=== PATIENT | female | born 1995 | race Caucasian/White ===

== ENCOUNTER 2018-05-09 15:25 | Emergency (ER) | payer BC ==
[~2018-05-09] VITALS: Ht 167.6 cm; Wt 92.1 kg
--- NOTE | 2018-05-09 15:53 | ED Psychosocial ---
General Chief Complaint: Psych/Social Disorder Stated Complaint: ANXIETY Nursing Triage Note: PT REPORTS PANIC ATTACK DUE TO STRESS RELATED TO STARTING COLLEGE. PT STATES SHE HAS FREQUENT ATTACKS SINCE PHYSICIAN STOPPED HER XANAX. PT IS MINIMALLY ANXIOUS ATT. (YAMILET HERNANDEZ) History of Present Illness Date Seen by Provider: May 09, 2018 Time Seen by Provider: 15:45 Initial Comments 22 year old female presents via EMS for anxiety attack. She has been diagnosed and treated for both depression and anxiety since December 2017. She was started on Zoloft in December and has been taking it continuously since then, though she initially had trouble remembering to take it. She used Xanax for a short time in January but has not had any further Xanax. She is treated at [facility]. She did recently have a breakup with her boyfriend over the last 2 or 3 weeks and reports that her symptoms have been worse. She has had no follow-up at [facility] and is no longer seeking counseling. She denies any suicidal or homicidal thoughts. She reports some mild issues with depression and anxiety since childhood but was never treated, her parents thought it "was a phase." She has been to multiple counselors over the last 5 years. Per her note at [facility] there was concern of generalized anxiety disorder versus bipolar 2 disorder. She was being seen every 2-4 weeks from Dec-Feb at [facility]. She was to follow up in Mar and did not keep that appt. She denies a trigger today, states she got home from class and was putting her things away. She began to feel pain in all her extermeties and extreme anxiety, she was shaking but called her sister who remained on the phone with her. EMS was notified. She never lost consciousness or had incontinence, though there was concern if she had a seizure by her sister. She reports no appetite and didn 't eat much today. Her glucose was 91 per EMS. She denies any auditory or visual hallucinations. Though she does report possible auditory hallucinations in her past. She thinks her anxiety has gotten worse since returning to classes this semester. She went through a break up with her boyfriend in the last 3 weeks and that has upset her. She doesn't like to talk to her family or friends about her stressors. 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 Timing/Duration: just prior to arrival Severity: mild Associated Symptoms: anxiety (YAMILET HERNANDEZ) Allergies and Home Medications Allergies Coded Allergies: No Known Drug Allergies (Unverified Allergy, Unknown, 04/25/09) Home Medications Alprazolam 0.25 Mg Tablet, 0.25 MG PO Q8H PRN for ANXIETY Take 1/2 to 1 tablet, as needed every 8 hours. Prescribed by: YAMILET HERNANDEZ on 05/09/18 5790 Patient Home Medication List Home Medication List Reviewed: Yes (YAMILET HERNANDEZ) Review of Systems Constitutional: no symptoms reported, see HPI : No LMP: May 07, 2018 Control/STD Prophylaxis: None (abstinence) Musculoskeletal: no symptoms reported, see HPI (YAMILET HERNANDEZ) All Other Systems Reviewed Negative Unless Noted: Yes (YAMILET HERNANDEZ) Past Qwkxxtb-Bfcfoh-Auzbgh Hx Past Med/Social Hx: Reviewed Nursing Past Med/Soc Hx (YAMILET HERNANDEZ) Patient Social History Alcohol Use: Denies Use Recreational Drug Use: No Smoking Status: Never a Smoker Recent Foreign Travel: No Contact w/Someone Who Travel: No Recent Infectious Disease Expo: No Recent Hopitalizations: No Physical Abuse: No Sexual Abuse: No (YAMILET HERNANDEZ) Past Medical History Surgeries: Yes Respiratory: No Cardiac: No Neurological: No Reproductive Disorders: No Genitourinary: No Gastrointestinal: No Musculoskeletal: No Endocrine: No HEENT: No Cancer: No Psychosocial: Yes Anxiety Integumentary: No Blood Disorders: No (YAMILET HERNANDEZ) Physical Exam Vital Signs - First Documented 05/09/18 15:29 Temp 98.9 Pulse 71 Resp 23 B/P (MAP) 146/77 (100) Pulse Ox 98 (FAROOQ LANDON PA) Capillary Refill : Less Than 3 Seconds (YAMILET HERNANDEZ) Height, Weight, BMI Height: 5'6.00" Weight: 203lbs. oz. [id number]; BMI Method:Stated General Appearance: WD/WN, no apparent distress, other (flat affect and poor eye contact) HEENT: PERRL/EOMI, normal ENT inspection, TMs normal, pharynx normal Neck: non-tender, full range of motion, supple, normal inspection Respiratory: chest non-tender, lungs clear, normal breath sounds, no respiratory distress Cardiovascular: normal peripheral pulses, regular rate, rhythm Gastrointestinal: normal bowel sounds, non tender, soft; No guarding, No rebound, No tenderness Extremities: normal range of motion, non-tender, normal inspection, normal capillary refill Neurologic/Psychiatric: no motor/sensory deficits, alert, oriented x 3 Appearance/Memory: appropriate appearance, appropriate insight, neat Behavior/Eye Contact: cooperative, normal speech, avoids eye contact Thoughts/Hallucinations: normal thought pattern, no apparent hallucination Skin: normal color, warm/dry (DAVID,YAMILET DINING CHAIR SEAT CUSHION TRIMMER) Progress/Results/Core Measures Results/Orders Lab Results Laboratory Tests Test 05/09/18 16:21 05/09/18 16:24 Range/Units White Blood Count 6.5 4.3-11.0 10^3/uL Red Blood Count 4.72 4.35-5.85 10^6/uL Hemoglobin 13.3 11.5-16.0 G/DL Hematocrit 40 35-52 % Mean Corpuscular Volume 85 80-99 FL Mean Corpuscular Hemoglobin 28 25-34 PG Mean Corpuscular Hemoglobin Concent 33 32-36 G/DL Red Cell Distribution Width 14.2 10.0-14.5 % Platelet Count 269 130-400 10^3/uL Mean Platelet Volume 10.3 7.4-10.4 FL Neutrophils (%) (Auto) 56 42-75 % Lymphocytes (%) (Auto) 27 12-44 % Monocytes (%) (Auto) 14 H 0-12 % Eosinophils (%) (Auto) 3 0-10 % Basophils (%) (Auto) 0 0-10 % Neutrophils # (Auto) 3.6 1.8-7.8 X 10^3 Lymphocytes # (Auto) 1.8 1.0-4.0 X 10^3 Monocytes # (Auto) 0.9 0.0-1.0 X 10^3 Eosinophils # (Auto) 0.2 0.0-0.3 10^3/uL Basophils # (Auto) 0.0 0.0-0.1 10^3/uL Sodium Level 140 135-145 MMOL/L Potassium Level 3.9 3.6-5.0 MMOL/L Chloride Level 108 H 98-107 MMOL/L Carbon Dioxide Level 22 21-32 MMOL/L Anion Gap 10 5-14 MMOL/L Blood Urea Nitrogen 7 7-18 MG/DL Creatinine 0.72 0.60-1.30 MG/DL Estimat Glomerular Filtration Rate > 60 BUN/Creatinine Ratio 10 Glucose Level 98 70-105 MG/DL Calcium Level 9.6 8.5-10.1 MG/DL Corrected Calcium 9.4 8.5-10.1 MG/DL Total Bilirubin 0.5 0.1-1.0 MG/DL Aspartate Amino Transf (AST/SGOT) 27 5-34 U/L Alanine Aminotransferase (ALT/SGPT) 30 0-55 U/L Alkaline Phosphatase 83 40-136 U/L Total Protein 7.2 6.4-8.2 GM/DL Albumin 4.3 3.2-4.5 GM/DL Urine Color YELLOW Urine Clarity CLEAR Urine pH 8 5-9 Urine Specific [place] 1.010 L 1.016-1.022 Urine Protein 1+ H NEGATIVE Urine Glucose (UA) NEGATIVE NEGATIVE Urine Ketones NEGATIVE NEGATIVE Urine Nitrite NEGATIVE NEGATIVE Urine Bilirubin NEGATIVE NEGATIVE Urine Urobilinogen NORMAL NORMAL MG/DL Urine Leukocyte Esterase NEGATIVE NEGATIVE Urine RBC (Auto) 5+ H NEGATIVE Urine RBC 25-50 H /HPF Urine WBC RARE /HPF Urine Squamous Epithelial Cells 5-10 /HPF Urine Crystals NONE /LPF Urine Bacteria FEW H /HPF Urine Casts NONE /LPF Urine Mucus NEGATIVE /LPF Urine Culture Indicated NO (FAROOQ LANDON) Medications Given in ED Current Medications Medications Dose Ordered Sig/Sandeep Route Start Time Stop Time Status Last Admin Dose Admin Alprazolam 0.25 mg ONCE ONCE PO 05/09/18 16:30 05/09/18 16:31 DC 05/09/18 16:36 0.25 MG Hyoscyamine Sulfate 0.125 mg ONCE ONCE SL 05/09/18 18:00 05/09/18 18:01 DC 05/09/18 17:54 0.125 MG (FAROOQ LANDON) Vital Signs/I&O 05/09/18 05/09/18 15:29 18:32 Temp 98.9 98.9 Pulse 71 75 Resp 23 16 B/P (MAP) 146/77 (100) 143/85 (104) Pulse Ox 98 98 (FAROOQ LANDON) Blood Pressure Mean: 100 Progress Progress Note : Time: 15:45 Progress Note Pt seen and evaluated, will obtain labs and re-evaluate. Will give Xanax 0.25 mg for anxiety. She is taking water and denies n/v/d. She reports a normal thyroid lab this fall and no history of thyroid disorder. Her sister was in room during exam and answered many of her questions for her. 1625 pt reports improvement in her anxiety. She made better eye contact and answered questions more directly. She complains of minor myalgias and GI pain, nonspecific. She denies eating today. Abd exam soft, no guarding or tenderness to palpation, Neg Sosa and Rebound. BS + x 4 Quad. Offered ice chips and crackers, patient reports "I am just not hungry" Explained that she needs to eat and especially drink, regardless if feeling hungry. Re-assured her that labs were all normal. Levsin 0.125 mg SL. 1700 Pt's father present in room. She is eating ice chips and crackers. She reports less anxiety and continues to deny suicidal or homicidal thoughts. 1715 She will be with family overnight and agrees to seek help if her symptoms worsen. She will have Xanax to use for acute anxiety attack and follow up at [facility] tomorrow. Discussed options for therapy and she is open to trying [facility]. I also encouraged she increase her fluid intake and having scheduled plan to meet her sister or friends at the [facility], stressing the positive mental health benefits of exercise. Discharge instructions and return precautions reviewed with patient. All questions answered. (YAMILET HERNANDEZ) Departure Communication (Admissions) Patient seen, evaluated, and patient care provided by CAMI Adames. (FAROOQ LANDON) Impression Primary Impression: Anxiety Additional Impression: Panic attack as reaction to stress Disposition: 01 HOME, SELF-CARE Condition: Improved Departure-Patient Inst. Decision time for Depature: 17:15 (YAMILET HERNANDEZ) Referrals: NORA FINCH MD (PCP/Family) Primary Care Physician Patient Instructions: Anxiety, Adult (DC), Panic Disorder (DC) Add. Discharge Instructions: Take Zoloft daily as prescribed. Take Xanax 1/2 or 1 tablet every 8 hours, as needed for anxiety. Make appt with Maria E Pepper APRN at [facility] for Tue. Consider seeing Elvi Garcias at [place]. You can call [facility] to speak to a mental health counselor 24 hours/day. Call 911 or return to ER if you have feelings to harm yourself or others. Return to Emergency Dept if symptoms worsen or new, urgent concerns. All discharge instructions reviewed with patient and/or family. Voiced understanding. Scripts Alprazolam (Xanax) 0.25 Mg Tablet 0.25 MG PO Q8H PRN for ANXIETY, #12 TAB 0 Refills Take 1/2 to 1 tablet, as needed every 8 hours. Prov: YAMILET HERNANDEZ 05/09/18 Copy Copies To 1: ANDREW IRBY MD, AMY ARNP May 09, 2018 15:53 FAROOQ LANDON May 09, 2018 18:25
[2018-05-09] MEDS ORDERED: ALPRAZolam 0.25 MG (XANAX) TAB PO ONE (16:30)
[2018-05-09 16:33] LABS: BASOPHILS % (AUTO) 0 % (0-10); EOSINOPHILS # (AUTO) 0.2 10^3/uL (0.0-0.3); EOSINOPHILS % (AUTO) 3 % (0-10); HEMATOCRIT 40 % (35-52); HEMOGLOBIN 13.3 G/DL (11.5-16.0); LYMPHOCYTES # (AUTO) 1.8 X 10^3 (1.0-4.0); LYMPHOCYTES % (AUTO) 27 % (12-44); MEAN CORPUSCULAR HEMOGLOBIN 28 PG (25-34); MEAN CORPUSCULAR HGB CONC 33 G/DL (32-36); MEAN CORPUSCULAR VOLUME 85 FL (80-99); MEAN PLATELET VOLUME 10.3 FL (7.4-10.4); MONOCYTES # (AUTO) 0.9 X 10^3 (0.0-1.0); MONOCYTES % (AUTO) 14 % (0-12); NEUTROPHILS # (AUTO) 3.6 X 10^3 (1.8-7.8); NEUTROPHILS % (AUTO) 56 % (42-75); PLATELET COUNT 269 10^3/uL (130-400); RED CELL DISTRIBUTION WIDTH 14.2 % (10.0-14.5); WHITE BLOOD COUNT 6.5 10^3/uL (4.3-11.0)
[2018-05-09 16:38] LABS: BILIRUBIN,URINE NEGATIVE (NEGATIVE); CLARITY,URINE CLEAR; COLOR,URINE YELLOW; GLUCOSE, URINE (UA) NEGATIVE (NEGATIVE); KETONES,URINE NEGATIVE (NEGATIVE); LEUKOCYTE ESTERASE ,URINE NEGATIVE (NEGATIVE); NITRITE,URINE NEGATIVE (NEGATIVE); PH,URINE 8 (5-9); PROTEIN,URINE 1+ (NEGATIVE); UROBILINOGEN,URINE NORMAL (NORMAL)
[2018-05-09 16:46] LABS: BACTERIA,URINE FEW /HPF; RBC,URINE 25-50 /HPF; WBC,URINE RARE /HPF
[2018-05-09 16:51] LABS: ALANINE AMINOTRANSFERASE 30 U/L (0-55); ALBUMIN 4.3 GM/DL (3.2-4.5); ALKALINE PHOSPHATASE 83 U/L (40-136); BILIRUBIN,TOTAL 0.5 MG/DL (0.1-1.0); BUN/CREATININE RATIO 10; CALCIUM 9.6 MG/DL (8.5-10.1); CARBON DIOXIDE 22 MMOL/L (21-32); CHLORIDE 108 MMOL/L (98-107); CREATININE SERUM 0.72 MG/DL (0.60-1.30); GFR ESTIMATED > 60; GLUCOSE 98 MG/DL (70-105); POTASSIUM 3.9 MMOL/L (3.6-5.0); SODIUM 140 MMOL/L (135-145); TOTAL PROTEIN 7.2 GM/DL (6.4-8.2)
[2018-05-09] MEDS ORDERED: DICYCLOMINE 10 MG (BENTYL) CAP PO STA (17:30)
[2018-05-09] MEDS ORDERED: ALPR0.25 PO (17:53)
[2018-05-09] MEDS ORDERED: HYOSCYAMINE 0.125 MG (LEVSIN) TAB SL ONE (18:00)
[2018-05-09 18:32] VITALS: BP 143/85
[2018-05-10 08:34] LABS: AMPHETAMINE SCREEN, URINE NEGATIVE (NEGATIVE); BARBITURATE SCREEN URINE NEGATIVE (NEGATIVE); BENZODIAZEPINES SCREEN URINE NEGATIVE (NEGATIVE); CANNABINOID SCREEN, URINE NEGATIVE (NEGATIVE); COCAINE SCREEN URINE NEGATIVE (NEGATIVE); METHADONE STAT NEGATIVE (NEGATIVE); METHAMPHETAMINE SCREEN URINE S NEGATIVE (NEGATIVE); OPIATE SCREEN URINE NEGATIVE (NEGATIVE); OXYCODONE STAT NEGATIVE (NEGATIVE); PROPOXYPHENE STAT NEGATIVE (NEGATIVE); TRICYCLIC ANTIDEPRESSANTS SCRE NEGATIVE (NEGATIVE)
== END 2018-05-09 18:32 | disposition home or self-care (01) ==
LOC: EDUNIT# 15:25 → ER 15:26
DX: F41.0 Panic disorder [episodic paroxysmal anxiety] (principal); F32.9 Major depressive disorder, single episode, unspecified
CPT/HCPCS: 36415; 80053; 80306; 81000; 84703; 85025; 99283

== ENCOUNTER 2022-07-26 23:28 | Emergency (ER) | payer BC ==
[~2022-07-26] VITALS: Ht 167.7 cm; Wt 90.7 kg
[~2022-07-26 23:28] MED LIST: ALPR0.25 PO
[2022-07-26 23:57] LABS: BASOPHILS % (AUTO) 0 % (0-10); EOSINOPHILS # (AUTO) 0.6 10^3/uL (0.0-0.3); EOSINOPHILS % (AUTO) 4 % (0-10); HEMATOCRIT 45 % (35-52); HEMOGLOBIN 15.2 g/dL (11.5-16.0); LYMPHOCYTES # (AUTO) 0.8 10^3/uL (1.0-4.0); LYMPHOCYTES % (AUTO) 6 % (12-44); MEAN CORPUSCULAR HEMOGLOBIN 30 pg (25-34); MEAN CORPUSCULAR HGB CONC 34 g/dL (32-36); MEAN CORPUSCULAR VOLUME 89 fL (80-99); MEAN PLATELET VOLUME 9.6 fL (9.0-12.2); MONOCYTES # (AUTO) 0.9 10^3/uL (0.0-1.0); MONOCYTES % (AUTO) 7 % (0-12); NEUTROPHILS # (AUTO) 11.7 10^3/uL (1.8-7.8); NEUTROPHILS % (AUTO) 83 % (42-75); PLATELET COUNT 329 10^3/uL (130-400); WHITE BLOOD COUNT 14.1 10^3/uL (4.3-11.0)
[2022-07-27] MEDS ORDERED: ONDANSETRON 4 MG/2 ML (SDV) Z0FRAN IVP ONE
[2022-07-27] MEDS ORDERED: LACTATED RINGERS 1,000 ML IV ONE
[2022-07-27 00:03] LABS: ALBUMIN 4.5 GM/DL (3.2-4.5); CHLORIDE 107 MMOL/L (98-107); POTASSIUM 3.9 MMOL/L (3.6-5.0); SODIUM 139 MMOL/L (135-145)
[2022-07-27 00:04] LABS: AMYLASE 43 U/L (25-125); CALCIUM 9.9 MG/DL (8.5-10.1)
[2022-07-27 00:05] LABS: GLUCOSE 138 MG/DL (70-105); TOTAL PROTEIN 7.9 GM/DL (6.4-8.2)
[2022-07-27 00:06] LABS: CARBON DIOXIDE 18 MMOL/L (21-32)
[2022-07-27 00:07] LABS: BILIRUBIN,TOTAL 0.5 MG/DL (0.1-1.0)
[2022-07-27 00:08] LABS: ALKALINE PHOSPHATASE 87 U/L (40-136)
[2022-07-27 00:09] LABS: CREATININE SERUM 0.82 MG/DL (0.60-1.30); GFR ESTIMATED 102
[2022-07-27 00:10] LABS: BUN/CREATININE RATIO 16
[2022-07-27 00:11] LABS: MAGNESIUM 2.2 MG/DL (1.6-2.4)
[2022-07-27 00:12] LABS: ALANINE AMINOTRANSFERASE 53 U/L (0-55)
[2022-07-27 00:13] LABS: LIPASE 20 U/L (8-78)
[2022-07-27 00:22] VITALS: BP_SYST 120; BP_SYST 124; BP_SYST 140; BP_DIAS 110; BP_DIAS 94; BP_DIAS 98
[2022-07-27 00:32] LABS: EOSINOPHILS % (MANUAL) 4 %; LYMPHOCYTES % (MANUAL) 6 %; MONOCYTES % (MANUAL) 8 %; NEUTROPHILS % (MANUAL) 82 %; RBC MORPH NORMAL
--- NOTE | 2022-07-27 00:43 | ED GI ---
General Chief Complaint: Abdominal/GI Problems Stated Complaint: N/V/D FATIGUE Nursing Triage Note: TO ED VIA [facility] FROM HOME. PT STATES TONIGHT SHE HAD NAUSEA AND WENT TO BATHROOM AND HAD "LOTS OF VOMITING AND DIARRHEA". PER EMS PT WAS FOUND ON FLOOR OF BATHROOM. EMS GAVE 4MG IV ZOFRAN EN ROUTE AND BLOOD GLUCOSE WAS 119 MG/DL. Source of Information: Patient History of Present Illness Date Seen by Provider: Jul 26, 2022 Time Seen by Provider: 23:32 Initial Comments PT ARRIVES VIA EMS FROM HOME PT STATES AROUND 1700 TODAY, SHE BEGAN HAVING NAUSEA, VOMITING, DIARRHEA AND MID ABDOMINAL PAIN SHE STATES SHE HAS VOMITED AN UNKNOWN NUMBER OF TIMES AND HAD DIARRHEA AN UNKNOWN NUMBER OF TIMES--STATES SHE WAS IN THE BATHROOM AND STATES "I JUST GOT SO TIRED I PASSED OUT TWICE" "I GOT HOT AND SWEATY AND PASSED OUT" SHE DENIES ANY INJURY FROM THOSE EPISODES SHE STATES HER STOMACH ISN'T HURTING NOW. EMS GAVE HER ZOFRAN 4 MG IV BLOOD GLUCOSE BY EMS WAS 119 PT STATES "I ALWAYS VOMIT ALOT BECAUSE OF STRESS AND I WOULDN'T BE SURPRISED IF THAT'S WHAT'S GOING ON NOW" STATES SHE HAS BEEN UNDER ALOT OF STRESS TODAY AND THE LAST FEW DAYS--STATES "JUST STUFF THAT'S BEEN GOING ON FOR THE LAST FEW DAYS" --BROKE UP WITH HER BOYFRIEND, DOESN'T KNOW WHAT TO DO ABOUT HER LIVING SITUATION--SHE IS LIVING IN AN APARTMENT WITH ROOM MATES NOW--STATES SHE WAS GOING TO MOVE IN WITH HER BOYFRIEND, BUT NOW SHE DOESN'T KNOW WHAT TO DO. ALSO STATES SHE HAS GRADUATION COMING UP, ALONG WITH FINALS, ETC. LMP 1 WEEK AGO, NORMAL. NO CONTROL PT DENIES ANY MEDICAL PROBLEMS, DOES NOT TAKE ANY DAILY MEDICATIONS, NO SURGERIES. SHE DENIES SMOKING, VAPING, DRUGS OR ALCOHOL USE SHE HAS HAD "1 OR 2" COVID VACCINES PCP: [facility] STUD[facility]--PT IS FROM [place], AND HER DAD LIVES IN [place] Allergies and Home Medications Allergies Coded Allergies: Penicillins (Verified Allergy, Unknown, 07/26/22) Patient Home Medication List Home Medication List Reviewed: Yes Alprazolam (Xanax) 0.25 Mg Tablet, 0.25 MG PO Q8H PRN for ANXIETY Prescribed by: YAMILET HERNANDEZ on 05/09/18 175 Ondansetron (Ondansetron Odt) 4 Mg Tab.rapdis, 4 MG PO Q4H Prescribed by: MEGAN BOWMAN on 07/27/22230 Pantoprazole Sodium (Protonix) 40 Mg Tablet.dr, 40 MG PO DAILY Prescribed by: MEGAN BOWMAN on 07/27/22233 [None] , (Reported) Entered as Reported by: DANA GONZALEZ on 04/24/09 174 Review of Systems Review of Systems Constitutional: see HPI EENTM: No Symptoms Reported Respiratory: No Symptoms Reported Cardiovascular: No Symptoms Reported Gastrointestinal: See HPI, Abdominal Pain, Diarrhea, Nausea, Vomiting Genitourinary: No Symptoms Reported Musculoskeletal: no symptoms reported Skin: no symptoms reported Psychiatric/Neurological: See HPI, Anxiety Endocrine: No Symptoms Reported Hematologic/Lymphatic: No Symptoms Reported Past Dsbgret-Nqjcil-Ikrcfn Hx Patient Social History Tobacco Use?: No Substance use?: No Alcohol Use?: No Immunizations Up To Date Influenza Vaccine Up-to-Date: No; Not Current COVID19 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 oz. 92.152906cs; 32.00 BMI Method:Stated General Appearance: WD/WN, no apparent distress HEENT: PERRL/EOMI Neck: normal inspection Respiratory: normal breath sounds, no respiratory distress, no accessory muscle use Cardiovascular: regular rate, rhythm, no murmur Gastrointestinal: non tender, soft Extremities: normal inspection Back: no CVA tenderness Neurologic/Psychiatric: leather belt shaper II-XII nml as tested, no motor/sensory deficits, alert, oriented x 3 Skin: normal color, warm/dry Progress/Results/Core Measures Results/Orders Lab Results Laboratory Tests Test 07/26/22 01:40 07/26/22 23:38 07/26/22 23:50 Range/Units Urine Color DARK YELLOW Urine Clarity CLEAR Urine pH 6.0 5-9 Urine Specific [place] >=1.030 1.016-1.022 Urine Protein 1+ H NEGATIVE Urine Glucose (UA) NEGATIVE NEGATIVE Urine Ketones 1+ H NEGATIVE Urine Nitrite NEGATIVE NEGATIVE Urine Bilirubin 1+ H NEGATIVE Urine Urobilinogen 0.2 < = 1.0 MG/DL Urine Leukocyte Esterase NEGATIVE NEGATIVE Urine RBC (Auto) NEGATIVE NEGATIVE Urine RBC NONE /HPF Urine WBC 0-2 /HPF Urine Crystals NONE /LPF Urine Bacteria NEGATIVE /HPF Urine Casts NONE /LPF Urine Mucus LARGE H /LPF Urine Culture Indicated NO Urine Opiates Screen NEGATIVE NEGATIVE Urine Oxycodone Screen NEGATIVE NEGATIVE Urine Methadone Screen NEGATIVE NEGATIVE Urine Propoxyphene Screen NEGATIVE NEGATIVE Urine Barbiturates Screen NEGATIVE NEGATIVE Ur Tricyclic Antidepressants Screen NEGATIVE NEGATIVE Urine Phencyclidine Screen NEGATIVE NEGATIVE Urine Amphetamines Screen NEGATIVE NEGATIVE Urine Methamphetamines Screen NEGATIVE NEGATIVE Urine Benzodiazepines Screen NEGATIVE NEGATIVE Urine Cocaine Screen NEGATIVE NEGATIVE Urine Cannabinoids Screen NEGATIVE NEGATIVE White Blood Count 14.1 H 4.3-11.0 10^3/uL Red Blood Count 5.06 3.80-5.11 10^6/uL Hemoglobin 15.2 11.5-16.0 g/dL Hematocrit 45 35-52 % Mean Corpuscular Volume 89 80-99 fL Mean Corpuscular Hemoglobin 30 25-34 pg Mean Corpuscular Hemoglobin Concent 34 32-36 g/dL Red Cell Distribution Width 12.9 10.0-14.5 % Platelet Count 329 130-400 10^3/uL Mean Platelet Volume 9.6 9.0-12.2 fL Immature Granulocyte % (Auto) 0 % Neutrophils (%) (Auto) 83 H 42-75 % Lymphocytes (%) (Auto) 6 L 12-44 % Monocytes (%) (Auto) 7 0-12 % Eosinophils (%) (Auto) 4 0-10 % Basophils (%) (Auto) 0 0-10 % Neutrophils # (Auto) 11.7 H 1.8-7.8 10^3/uL Lymphocytes # (Auto) 0.8 L 1.0-4.0 10^3/uL Monocytes # (Auto) 0.9 0.0-1.0 10^3/uL Eosinophils # (Auto) 0.6 H 0.0-0.3 10^3/uL Basophils # (Auto) 0.0 0.0-0.1 10^3/uL Immature Granulocyte # (Auto) 0.0 0.0-0.1 10^3/uL Neutrophils % (Manual) 82 % Lymphocytes % (Manual) 6 % Monocytes % (Manual) 8 % Eosinophils % (Manual) 4 % Blood Morphology Comment NORMAL Sodium Level 139 135-145 MMOL/L Potassium Level 3.9 3.6-5.0 MMOL/L Chloride Level 107 98-107 MMOL/L Carbon Dioxide Level 18 L 21-32 MMOL/L Anion Gap 14 5-14 MMOL/L Blood Urea Nitrogen 13 7-18 MG/DL Creatinine 0.82 0.60-1.30 MG/DL Estimat Glomerular Filtration Rate 102 BUN/Creatinine Ratio 16 Glucose Level 138 H 70-105 MG/DL Calcium Level 9.9 8.5-10.1 MG/DL Corrected Calcium 9.5 8.5-10.1 MG/DL Magnesium Level 2.2 1.6-2.4 MG/DL Total Bilirubin 0.5 0.1-1.0 MG/DL Aspartate Amino Transf (AST/SGOT) 23 5-34 U/L Alanine Aminotransferase (ALT/SGPT) 53 0-55 U/L Alkaline Phosphatase 87 40-136 U/L Total Protein 7.9 6.4-8.2 GM/DL Albumin 4.5 3.2-4.5 GM/DL Amylase Level 43 25-125 U/L Lipase 20 8-78 U/L Serum Alcohol < 10 <10 MG/DL SARS-CoV-2 RNA (RT-PCR) Not Detected Not Detecte My Orders Orders - MEGAN BOWMAN DO Ed Iv/Invasive Line Start (07/26/22 23:50) Monitor-Rhythm Ecg Trace Only (07/26/22 23:50) Alcohol (07/26/22 23:50) Amylase (07/26/22 23:50) Cbc With Automated Diff (07/26/22 23:50) Comprehensive Metabolic Panel (07/26/22 23:50) Drug Screen Stat (Urine) (07/26/22 23:50) Lipase (07/26/22 23:50) Magnesium (07/26/22 23:50) Ua Culture If Indicated (07/26/22 23:50) Ed Iv/Invasive Line Start (07/26/22 23:50) Lactated Ringers (Lr 1000 Ml Iv Solution (07/27/22 00:00) Ondansetron Injection (Zofran Injectio (07/27/22 00:00) Covid 19 Inhouse Test (07/26/22 23:50) Orthostatic Vital Signs (Adult (07/26/22 23:55) Manual Differential (07/26/22 23:38) Urine Bedside (07/27/22 01:44) Pantoprazole Injection (Protonix Injecti (07/27/22 02:45) Medications Given in ED Current Medications Medications Dose Ordered Sig/Sandeep Route Start Time Stop Time Status Last Admin Dose Admin Lactated Ringer's 1,000 ml @ 0 mls/hr Q0M ONCE IV 07/27/22 00:00 07/27/22 00:01 DC 07/27/22 00:05 999 MLS/HR Ondansetron HCl 4 mg ONCE ONCE IVP 07/27/22 00:00 07/27/22 00:01 DC 07/27/22 00:05 4 MG Pantoprazole 40 mg ONCE ONCE IV 07/27/22 02:45 07/27/22 02:46 DC 07/27/22 02:44 40 MG Vital Signs/I&O 07/26/22 07/27/22 07/27/22 23:30 00:22 02:50 Temp 36.4 36.4 Pulse 93 93 87 101 111 Resp 16 16 B/P (MAP) 117/102 (107) 124/98 (107) 134/79 120/94 (103) 140/110 (120) Pulse Ox 96 97 O2 Delivery Room Air Room Air Blood Pressure Mean: 120 Progress Progress Note : Progress Note GIVEN: -IV FLUIDS -Z0FRAN -PROTONIX ORTHOSTATICS NORMAL. 0122--CALLED LAB. STILL NO TEST RESULT. THEY HAVE NOT RAN THE TEST YET. WILL RUN IT NOW. 0140--RN CALLED LAB. NOW LAB REPORTS THEY DO NOT HAVE ENOUGH BLOOD. PT HAS BEEN ABLE TO VOID, WILL DO BEDSIDE TEST--WHICH IS NEGATIVE PT SLEPT FOR MOST OF ER STAY NO NAUSEA, VOMITING OR DIARRHEA DURING ER STAY VITALS STABLE. DISCUSSED TEST RESULTS, ANTICIPATED COURSE, SYMPTOMATIC TREATMENT, DIET, MEDICATIONS, NEED FOR FOLLOW UP AND RETURN PRECAUTIONS Departure Impression Primary Impression: Nausea, vomiting, and diarrhea Additional Impression: Anxiety Disposition: 01 HOME, SELF-CARE Condition: Improved Departure-Patient Inst. Decision time for Depature: 02:29 Referrals: ANDREW IRBY MD Patient Instructions: [id number], Anxiety, Adult ED Add. Discharge Instructions: CLEAR LIQUIDS--WATER, BROTH, JELLO, GATORADE BRATS DIET--BANANAS, RICE, APPLESAUCE, TOAST, SALTINES FOLLOW UP WITH [facility] IF YOUR SYMPTOMS PERSIST All discharge instructions reviewed with patient and/or family. Voiced understanding. Scripts Pantoprazole Sodium (Protonix) 40 Mg Tablet.dr 40 MG PO DAILY, #15 TAB Prov: MEGAN BOWMAN DO 07/27/22 Ondansetron (Ondansetron Odt) 4 Mg Tab.rapdis 4 MG PO Q4H for Nausea/Vomiting, #10 TAB Prov: MEGAN BOWMAN DO 07/27/22 MEGAN BOWMAN DO Jul 27, 2022 00:43
[2022-07-27 01:53] LABS: CLARITY,URINE CLEAR; COLOR,URINE DARK YELLOW; GLUCOSE, URINE (UA) NEGATIVE (NEGATIVE); KETONES,URINE 1+ (NEGATIVE); LEUKOCYTE ESTERASE ,URINE NEGATIVE (NEGATIVE); NITRITE,URINE NEGATIVE (NEGATIVE); PROTEIN,URINE 1+ (NEGATIVE)
[2022-07-27 02:12] LABS: AMPHETAMINE SCREEN, URINE NEGATIVE (NEGATIVE); BARBITURATE SCREEN URINE NEGATIVE (NEGATIVE); BENZODIAZEPINES SCREEN URINE NEGATIVE (NEGATIVE); CANNABINOID SCREEN, URINE NEGATIVE (NEGATIVE); COCAINE SCREEN URINE NEGATIVE (NEGATIVE); METHADONE STAT NEGATIVE (NEGATIVE); OPIATE SCREEN URINE NEGATIVE (NEGATIVE); OXYCODONE STAT NEGATIVE (NEGATIVE); PROPOXYPHENE STAT NEGATIVE (NEGATIVE); TRICYCLIC ANTIDEPRESSANTS SCRE NEGATIVE (NEGATIVE)
[2022-07-27 02:13] LABS: BACTERIA,URINE NEGATIVE /HPF; BILIRUBIN,URINE 1+ (NEGATIVE); WBC,URINE 0-2 /HPF
[2022-07-27] MEDS ORDERED: ONDA4TAB11 PO (02:31)
[2022-07-27] MEDS ORDERED: PANT40TA2 PO (02:34)
[2022-07-27] MEDS ORDERED: PANTOPRAZOLE 40 MG (PROTONIX) VIAL IV ONE (02:45)
[2022-07-27 02:50] VITALS: BP 134/79
== END 2022-07-27 02:50 | disposition home or self-care (01) ==
LOC: EDUNIT# 23:28 → ER 23:29
DX: R11.2 Nausea with vomiting, unspecified (principal); R19.7 Diarrhea, unspecified; F41.9 Anxiety disorder, unspecified; Z20.822 Contact with and (suspected) exposure to COVID-19
CPT/HCPCS: 36415; 80053; 80306; 80320; 81000; 82150; 83690; 83735; 84703; 85007; 85027; 87636; 93041